=== PATIENT | female | born 1940 | race Caucasian/White ===

== ENCOUNTER 2016-11-13 16:21 | Inpatient (IN) | payer OTHER ==
[~2016-11-13] VITALS: Ht 157.5 cm; Wt 69.7 kg
--- NOTE | ~2016-11-13 | S ---
[facility] [place] [address] SURGICAL PATH RPT PROCEDURE Name: MARVA SOTO Room #: 426-P DIS IN M.R.#: [id number] Admission: 11/13/16 Date of : 40 Discharge: 11/14/16 Report #: [id number] Path Case #: [id number] PATHOLOGY REPORT COLLECTION DATE: 11/14/2016 RECEIVED DATE: 11/15/2016 SUBMITTING PHYS: Dr. Bridgette Phillips OTHER PHYS: Dr. Juan José Chadwick SPECIMEN(S) RECEIVED: A.Bx of polyp at 45 cm B.Bx at 40 xm-erythema mucosa C.Bx at 30 cm * * * * * * * * * * * * FINAL DIAGNOSIS: A. Colon, 45 cm, biopsy: - Unremarkable colonic mucosa with lymphoid aggregate. B. Colon, 40 cm, biopsy: - Colonic mucosa with focal acute inflammation and lamina propria fibrosis. - See comment. C. Colon, 30 cm, biopsy: - Colonic mucosa with focal lamina propria fibrosis. - See comment. 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 Clinical correlation is recommended. PATHOLOGIST: Maurizio Hartley M.D. REPORT ELECTRONICALLY SIGNED BY: Maurizio Hartley M.D. DATE/TIME: 11/18/2016 14:18 * * * * * * * * * * * * GROSS PATHOLOGY: A. Received in formalin labeled "Marva SotoMALIKA of polyp at 45 cm," is a segment of kaiser soft tissue measuring 0.3 cm in maximum dimension. The specimen is submitted entirely in cassette A1. B. Received in formalin labeled "Marva SotoMALIKA at 40 cm," are 7 segments of kaiser soft tissue measuring 2.2 x 0.9 x 0.3 cm in aggregate dimensions and ranging from 0.2 to 0.5 cm in maximum dimension. The specimen is submitted entirely in cassette B1. C. Received in formalin labeled "Marvadestiny SotoMALIKA at 30 cm," are [address] [facility] [place] [address] SURGICAL PATH RPT PROCEDURE Name: MARVA SOTO Room #: 426-P [facility] IN M.R.#: [id number] Admission: 11/13/16 Date of : 40 Discharge: 11/14/16 Report #: [id number] Path Case #: [id number] segments of kaiser soft tissue measuring 0.4 x 0.2 x 0.2 cm in aggregate dimensions and ranging from 0.2 to 0.2 cm in maximum dimension. The specimen is submitted entirely in cassette C1. (TSD; 11/15/2016) CLINICAL HISTORY: Pre-OP DX: Dysphagia, anemia Post-OP DX: AVM, diverticulosis, colon polyps INITIAL CPT CODE(S): A; 85905 B; 54276 C; 90844 Professional services performed by [facility] at [address] , [place] [address] Technical services performed by [facility] at [address] [place] [address], [address], [place] [address]. [facility] [address] [place] [address] PHONE: [phone] DIRECTOR: Wilbur Gee M.D. * * * END OF REPORT * * *
--- NOTE | ~2016-11-13 | D ---
[facility] [place] [address] DISCHARGE SUMMARY Name: MARVA SOTO Room #: 426-P [facility] IN M.R.#: [id number] Admission: 11/13/16 Attend Phys: Terra Chadwick MD Discharge: 11/14/16 Date of : 40 Report #: [id number] THIS REPORT FOR: //name// CC: Juan José Chadwick DATE OF SERVICE: 11/14/2016 HISTORY OF PRESENT ILLNESS: The patient is a 75-year-old female with no major health problems, who came to the hospital with lower GI bleed. Please refer to the admission H and P for details. HOSPITALIZATION COURSE: The patient was hospitalized for lower GI bleed. The patient's condition remained hemodynamically stable, and she had only mild anemia, without drop in hemoglobin. GI team was consulted. The patient had EGD and colonoscopy. Colonoscopy revealed AV malformation, and evidence of suspected ischemic colitis. Biopsies were taken. The patient also has diverticulosis. EGD was unremarkable. The patient had esophageal dilation for dysphagia. The patient's hospital stay was uneventful. Currently, the patient's condition is acceptable, as documented in the patient's chart. The patient was also found to have mild UTI. She will be treated with Cipro as an outpatient. Urine cultures are not yet available. The patient will be discharged home with close outpatient followup. She will follow up in GI clinic as well in a couple of weeks or so to find out about the biopsy results. DISCHARGE DIAGNOSES: Lower gastrointestinal bleed, due to arteriovenous malformation, and suspected ischemic colitis. Diverticulosis on colonoscopy. SECONDARY DIAGNOSIS: Previous history of gastrointestinal bleed a few years ago, etiology is not specified. DISCHARGE MEDICATIONS: Please refer to the medication reconciliation list. FOLLOWUP PLAN: [facility] [address] [place] [address] DISCHARGE SUMMARY Name: MARVA SOTO Room #: 426-P [facility] IN .R.#: [id number] Admission: 11/13/16 Attend Phys: Terra Chadwick MD Discharge: 11/14/16 Date of : 40 Report #: [id number] 1. Follow up in the GI clinic in about 2 weeks as advised. 2. Follow up with primary care physician as planned. <ELECTRONICALLY SIGNED> By: Terra Chadwick MD 11/15/16 [id number] Terra Chadwick MD /nt
[2016-11-13 16:22] VITALS: BP 136/72
[2016-11-13 16:57] LABS: URINE BILIRUBIN NEGATIVE (Negative); URINE BLOOD NEGATIVE (Negative); URINE COLOR YELLOW; URINE GLUCOSE-RANDOM* NEGATIVE (Negative); URINE KETONES NEGATIVE (Negative); URINE PROTEIN (DIPSTICK) NEGATIVE (Negative); URINE SPECIFIC GRAVITY <= 1.005 (1.003-1.035); URINE UROBILINOGEN 0.2 E.U./dl (0.2-1.0)
[2016-11-13 17:00] LABS: URINE LEUKOCYTES-REFLEX 1+ (Negative)
[2016-11-13 17:09] LABS: CASTS None Seen /LPF (None Seen); CRYSTALS None Seen /LPF (None Seen); SQUAMOUS 4-10 Moderate /LPF (0-3); URINE RBC 0-2 Rare /HPF (0-2); URINE WBC-REFLEX 6-15 Few /HPF (0-5)
[2016-11-13 17:15] LABS: ABSOLUTE NEUTROPHILS 4.4 thou/uL (1.4-8.2); BASOPHILS 0.7 % (0.0-2.0); EOSINOPHILS 3.5 % (0.0-3.0); HEMATOCRIT 29.6 % (37.0-47.0); HEMOGLOBIN 10.1 gm/dL (12.0-15.0); LYMPHOCYTES 27.7 % (24.0-44.0); MCH 30.2 pg (26.0-34.0); MCHC 34.3 g/dL (28.0-37.0); MCV 88.1 fL (80.0-100.0); MONOCYTES 8.1 % (1.0-8.0); PLATELET COUNT 233 thou/uL (150-400); RBC 3.36 mil/uL (4.20-5.00); RDW 14.8 % (10.5-14.5); WBC 7.4 thou/uL (4.0-11.0)
[2016-11-13 17:19] LABS: MANUAL DIFF NO
[2016-11-13 17:33] LABS: CALCIUM 8.9 mg/dL (8.5-10.1); CREATININE 0.8 mg/dL (0.6-1.0); POTASSIUM 3.9 mmol/L (3.5-5.1)
[2016-11-13 17:34] LABS: ALBUMIN 3.6 g/dL (3.4-5.0); TOTAL BILIRUBIN 0.1 mg/dL (<0.1-1.0); TOTAL PROTEIN 6.9 g/dL (6.4-8.2)
[2016-11-13 18:15] VITALS: BP 102/40
[2016-11-13 19:13] VITALS: BP 121/66
[2016-11-13 19:21] LABS: TSH 1.935 uIU/mL (0.358-3.740)
[2016-11-13 20:00] VITALS: BP 110/70
[2016-11-13 21:10] LABS: HEMATOCRIT 30.3 % (37.0-47.0); MCH 29.5 pg (26.0-34.0); MCHC 33.1 g/dL (28.0-37.0); MCV 89.2 fL (80.0-100.0); RBC 3.4 mil/uL (4.20-5.00); RDW 14.8 % (10.5-14.5); WBC 7.7 thou/uL (4.0-11.0)
[2016-11-14 00:32] LABS: HEMATOCRIT 32.4 % (37.0-47.0); HEMOGLOBIN 10.7 gm/dL (12.0-15.0)
[2016-11-14 04:18] VITALS: BP 98/56
[2016-11-14 06:47] LABS: HEMATOCRIT 29.8 % (37.0-47.0); HEMOGLOBIN 10.1 gm/dL (12.0-15.0); MCHC 33.9 g/dL (28.0-37.0); MCV 88.3 fL (80.0-100.0); RBC 3.38 mil/uL (4.20-5.00); RDW 14.8 % (10.5-14.5); WBC 9.2 thou/uL (4.0-11.0)
[2016-11-14 06:48] LABS: CALCIUM 8.4 mg/dL (8.5-10.1); CREATININE 0.7 mg/dL (0.6-1.0); POTASSIUM 3.7 mmol/L (3.5-5.1)
[2016-11-14 08:00] VITALS: BP 93/60
[2016-11-14 08:59] VITALS: BP 93/60
[2016-11-14 16:17] VITALS: BP 99/61
[2016-11-14] MEDS ORDERED: CIPRO250 M1 PO (16:41)
[2016-11-14 16:54] VITALS: BP 99/61
== END 2016-11-14 17:53 | disposition home or self-care (01) | DRG 378 ==
LOC: ER 16:21 → EROBS 18:13 → 4E 18:13 → ENTRNSPT 11-14 17:34 → 4E 11-14 17:53
PROVIDERS: Emergency Medicine; Internal Medicine Endocrinology, Diabetes & Metabolism; Nurse Practitioner
DX: K55.21 Angiodysplasia of colon with hemorrhage (principal); N39.0 Urinary tract infection, site not specified; K55.9 Vascular disorder of intestine, unspecified; D64.9 Anemia, unspecified; K57.30 Diverticulosis of large intestine without perforation or abscess without bleeding; Z88.6 Allergy status to analgesic agent; Z88.0 Allergy status to penicillin
CPT/HCPCS: 10183; 62110; 62900; 70005